=== PATIENT | male | born 1950 | race Two or more races ===

== ENCOUNTER 2024-12-31 06:44 | Emergency (ER) | payer OTHER ==
[~2024-12-31] VITALS: Ht 167.6 cm; Wt 95.3 kg
[2024-12-31] MEDS ORDERED: ASA81 MG (06:59)
[2024-12-31] MEDS ORDERED: HUMALOG100 UNIT/2 (06:59)
== END 2024-12-31 08:53 | disposition home or self-care (01) ==
LOC: ER 06:46 → EDSEX 07:26 → ER 07:26
DX: L76.22 Postprocedural hemorrhage of skin and subcutaneous tissue following other procedure (principal); E11.9 Type 2 diabetes mellitus without complications; Z79.4 Long term (current) use of insulin